=== PATIENT | female | born 1970 | race Caucasian/White ===

== ENCOUNTER 2017-03-29 11:36 | Emergency (ER) | payer MEDICARE, MEDICAID ==
[2017-03-29 11:45] VITALS: BP 131/72
[2017-03-29] MEDS ORDERED: Ketorolac 60 MG/2 ML SDV IM ONE (12:04)
--- NOTE | 2017-03-29 12:41 | EDM.PDOC ---
ED HPI GENERAL MEDICAL PROBLEM - General Chief Complaint: Back Pain or Injury Stated Complaint: BACK PAIN Time Seen by Provider: 03/29/17 11:50 Source of Information: Reports: Patient History Limitations: Reports: No Limitations - History of Present Illness INITIAL COMMENTS - FREE TEXT/NARRATIVE: 46-year-old female with chronic low back pain and fibromyalgia has an increase in pain over the past 24 hours. She arrived his wheelchair, crying and very uncomfortable. No incontinence or radiation of pain down the legs. No new injury such as a fall. Onset: Unknown/Unsure Location: Reports: Back Quality: Reports: Burning, Sharp, Stabbing Severity: Severe Associated Symptoms: Reports: No Other Symptoms - Related Data Allergies Allergy/AdvReac Type Severity Reaction Status Date / Time strawberry [[place]] Allergy Hives Verified 02/13/17 10:32 Home Meds: Home Meds Ibuprofen [Motrin] 800 mg PO ASDIRECTED PRN 09/23/13 [History] Meloxicam [Mobic] 15 mg PO DAILY 09/23/13 [History] Pregabalin [Lyrica] 225 mg PO BID 09/23/13 [History] SUMAtriptan Succinate [Imitrex] 6 mg SQ ASDIRECTED PRN 09/23/13 [History] Albuterol Sulfate [Albuterol Sulfate HFA] 1 inh NEB ASDIRECTED 11/30/14 [History ] Ondansetron [Zofran ODT] 1 tab PO Q8H PRN 11/30/14 [History] DULoxetine HCl [Cymbalta] 40 mg PO DAILY 04/18/16 [History] Past Medical History Gastrointestinal History: Reports: Diverticulosis Musculoskeletal History: Reports: Back Pain, Chronic Other Oncologic History: melanoma skin cancer right arm - Past Surgical History HEENT Surgical History: Reports: Adenoidectomy, Myringotomy w Tube(s), Tonsillectomy GI Surgical History: Reports: Appendectomy, Colon Female Surgical History: Reports: Hysterectomy Social & Family History - Tobacco Use Smoking Status *Q: Current Every Day Smoker Years of Tobacco use: 24 Packs/Tins Daily: 1 Used Tobacco, but Quit: Yes Month Tobacco Last Used: mar 2013 - Alcohol Use Days Per Week of Alcohol Use: 0 - Recreational Drug Use Recreational Drug Use: Yes Recreational Drug Type: Reports: Marijuana/Hashish Recreational Drug Use Frequency: Daily ED ROS GENERAL - Review of Systems Review Of Systems: See Below Constitutional: Denies: Fever, Chills, Malaise Respiratory: Denies: Shortness of Breath, Cough Cardiovascular: Denies: Chest Pain GI/Abdominal: Denies: Abdominal Pain Musculoskeletal: Reports: Back Pain Neurological: Reports: Other (History of traumatic brain injury) ED EXAM,LOWER BACK PAIN/INJURY - Physical Exam Exam: See Below Exam Limited By: No Limitations General Appearance: Alert, Mild Distress Respiratory/Chest: No Respiratory Distress Back Exam: Paraspinal Tenderness (Paraspinal tenderness is present over the lumbar spine, particularly on the right.) Neurological: No Motor/Sensory Deficits Course - Vital Signs Last Recorded V/S: Last Vital Signs Temp 98.8 F 03/29/17 11:56 Pulse 84 03/29/17 11:56 Resp 18 03/29/17 11:56 BP 131/72 03/29/17 11:56 Pulse Ox 94 L 03/29/17 11:56 - Orders/Labs/Meds Meds: Medications Discontinued Medications Generic Name Dose Route Start Last Admin Trade Name Susan PRN Reason Stop Dose Admin Ketorolac Tromethamine 60 mg 03/29/17 12:04 03/29/17 12:12 Toradol IM 03/29/17 12:05 60 mg ONETIME ONE Administration - Re-Assessments/Exams Free Text/Narrative Re-Assessment/Exam: 03/29/17 12:40 Patient was given 60 mg of IM Toradol which gave her really good relief. She'll be discharged on a Medrol Dosepak along with Flexeril and encouraged to continue with ibuprofen. She will recheck with her primary provider next week to see if she is due for additional imaging such as MRI. Departure - Departure Time of Disposition: 13:18 Disposition: Home, Self-Care 01 Condition: Good Clinical Impression: Acute exacerbation of chronic low back pain - Discharge Information Instructions: Back Pain, Adult, [id number] Referrals: PCP,None [Primary Care Provider] - Forms: ED Department Discharge Care Plan Goals: Continue your current medications, and take Medrol Dosepak and Flexeril as prescribed. Try to increase activity and recheck with your regular doctor next week regarding your back.
== END 2017-03-29 13:30 | disposition home or self-care (01) ==
LOC: JP.ED 11:36
DX: G89.29 Other chronic pain (principal); M54.5 Low back pain; F17.210 Nicotine dependence, cigarettes, uncomplicated; Z91.018 Allergy to other foods
CPT/HCPCS: 96372; 99283; J1885

== ENCOUNTER 2017-11-08 21:00 | Emergency (ER) | payer MEDICARE, MEDICAID ==
[2017-11-08] MEDS ORDERED: Sodium Chloride 0.9% 1,000 ML IV ONE ×2 (21:48→23:36)
[2017-11-08 21:53] VITALS: BP 105/58
--- NOTE | 2017-11-09 01:47 | EDM.PDOC ---
ED HPI GENERAL MEDICAL PROBLEM - General Chief Complaint: Neurological Problem Stated Complaint: SEIZURES Time Seen by Provider: 11/08/17 21:10 Source of Information: Reports: EMS, Family History Limitations: Reports: Altered Mental Status - History of Present Illness INITIAL COMMENTS - FREE TEXT/NARRATIVE: This patient arrived by EMS after having 3 seizures while at a local bar/ restaurant. Her said that she had not eaten or drunk much all day so could be a little dehydrated. He said she sort of tensed up with her elbows pulled in and fists at her throat and just sort of shook. She fell and may have bumped her head. When she stopped they sat her up and she did the same thing again.She had several beers just prior to this episode. EMS said she seemed post-ictal. They gave 10 mg versed and transported. SZ began 6-7 yrs ago. Last SZ 6 mos ago. Uses "pot oil" for control. body pain Pain Score (Numeric/FACES): 10 - Related Data Allergies Allergy/AdvReac Type Severity Reaction Status Date / Time strawberry [[place]] Allergy Hives Verified 11/08/17 21:06 Home Meds: Home Meds Ibuprofen [Motrin] 800 mg PO ASDIRECTED PRN 09/23/13 [History] Meloxicam [Mobic] 15 mg PO DAILY 09/23/13 [History] Pregabalin [Lyrica] 300 mg PO BID 09/23/13 [History] SUMAtriptan Succinate [Imitrex] 6 mg SQ ASDIRECTED PRN 09/23/13 [History] Albuterol Sulfate [Albuterol Sulfate HFA] 1 inh NEB ASDIRECTED 11/30/14 [History ] Ondansetron [Zofran ODT] 1 tab PO Q8H PRN 11/30/14 [History] DULoxetine HCl [Cymbalta] 40 mg PO DAILY 04/18/16 [History] Past Medical History HEENT History: Reports: Impaired Vision Respiratory History: Reports: Sleep Apnea, Other (See Below) Other Respiratory History: Cpap Gastrointestinal History: Reports: Diverticulosis, GERD, Irritable Bowel Syndrome Genitourinary History: Reports: Urinary Incontinence 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: Musculoskeletal History: Reports: Arthritis, Back Pain, Chronic, Fracture, Fibromyalgia Neurological History: Reports: Migraines, Seizure Psychiatric History: Reports: Anxiety, Depression, Panic Attack, PTSD Oncologic (Cancer) History: Reports: Malignant Melanoma, Other (See Below) Other Oncologic History: melanoma skin cancer right arm Dermatologic History: Reports: Melanoma - Infectious Disease History Infectious Disease History: Reports: Chicken Pox - Past Surgical History HEENT Surgical History: Reports: Adenoidectomy, Myringotomy w Tube(s), Tonsillectomy GI Surgical History: Reports: Appendectomy, Colon Female Surgical History: Reports: Hysterectomy, Other (See Below) Other Female Surgeries/Procedures: left ovary and bilateral fallopian tube removed. right ovary remains intact Musculoskeletal Surgical History: Reports: Other (See Below) Other Musculoskeletal Surgeries/Procedures:: left 5th finger, plate with wires placed. right great toe, x3 screws placed Social & Family History - Tobacco Use Smoking Status *Q: Current Every Day Smoker Years of Tobacco use: 25 Packs/Tins Daily: 1 - Caffeine Use Caffeine Use: Reports: Coffee - Recreational Drug Use Recreational Drug Use: Yes Drug Use in Last 12 Months: Yes Recreational Drug Type: Reports: Marijuana/Hashish Recreational Drug Use Frequency: Daily ED ROS GENERAL - Review of Systems Review Of Systems: Unable To Obtain - Physical Exam Exam: See Below Exam Limited By: No Limitations General Appearance: WD/WN, Lethargic (appears moderately sedated.) Eye Exam: Bilateral Eye: EOMI, Normal Inspection, PERRL Ears: Normal External Exam Nose: Normal Inspection Throat/Mouth: Normal Inspection, Normal Oropharynx (very dry) Head Exam: Atraumatic (no bruising) Neck: Supple Respiratory/Chest: Lungs Clear Cardiovascular: Regular Rate, Rhythm GI/Abdominal: Soft, Non-Tender Neuro Exam (Abbreviated): Normal Reflexes, No Motor/Sensory Deficits, Slow to Respond, Other (sedated) DTR: 2+: Bicep (R), Bicep (L), Patella (R), Patella (L) Extremities: Normal Inspection Psychiatric: Normal Affect (when more alert) Skin Exam: Warm, Dry Course - Vital Signs Last Recorded V/S: Last Vital Signs Temp 36.6 C 11/08/17 21:11 Pulse 81 11/08/17 21:52 Resp 17 11/08/17 21:52 BP 105/58 L 11/08/17 21:52 Pulse Ox 96 11/08/17 21:52 - Orders/Labs/Meds Labs: Laboratory Tests 11/08/17 11/08/17 11/08/17 Range/Units 22:00 22:00 22:00 WBC 9.7 (4.5-11.0) K/uL RBC 3.78 (3.30-5.50) M/uL Hgb 13.1 (12.0-15.0) g/dL Hct 37.9 (36.0-48.0) % MCV 100 H (80-98) fL MCH 35 H (27-31) pg MCHC 35 (32-36) % Plt Count 344 (150-400) K/uL Neut % (Auto) 57 (36-66) % Lymph % (Auto) 31 (24-44) % [place]ckett % (Auto) 10 H (2-6) % Eos % (Auto) 3 (2-4) % Baso % (Auto) 0 (0-1) % Sodium 144 (140-148) mmol/L Potassium 3.2 L (3.6-5.2) mmol/L Chloride 106 (100-108) mmol/L Carbon Dioxide 25 (21-32) mmol/L Anion Gap 16.2 H (5.0-14.0) mmol/L BUN 8 (7-18) mg/dL Creatinine 0.8 (0.6-1.0) mg/dL Est Cr Clr Drug Dosing 68.76 mL/min Estimated GFR (MDRD) > 60 (>60) Glucose 87 (74-106) mg/dL Calcium 8.5 (8.5-10.1) mg/dL Total Bilirubin 0.2 D (0.2-1.0) mg/dL AST 24 (15-37) U/L ALT 21 (12-78) U/L Alkaline Phosphatase 57 (46-116) U/L Total Protein 6.6 (6.4-8.2) g/dL Albumin 3.6 (3.4-5.0) g/dL Globulin 3.0 (2.3-3.5) g/dL Albumin/Globulin Ratio 1.2 (1.2-2.2) Ethyl Alcohol 80 mg/dL Meds: Medications Discontinued Medications Generic Name Dose Route Start Last Admin Trade Name Freq PRN Reason Stop Dose Admin Sodium Chloride 1,000 mls @ 999 mls/hr 11/08/17 21:48 11/08/17 21:50 Normal Saline IV 11/08/17 22:48 999 mls/hr .BOLUS ONE Administration Sodium Chloride 1,000 mls @ 999 mls/hr 11/08/17 23:36 11/08/17 23:55 Normal Saline IV 11/09/17 00:36 999 mls/hr .BOLUS ONE Administration - Re-Assessments/Exams Free Text/Narrative Re-Assessment/Exam: 11/09/17 06:20 Hydrated with 2 liter iv ns Observed in ER until alert and then discharged. Discussed with her prior. At this point would make no med changes. He said she will followup with Neurology. I have some suspicion of orthostatic syncope rather than true SZ. Departure - Departure Time of Disposition: 01:45 Disposition: Home, Self-Care 01 Condition: Fair Clinical Impression: Seizure - Discharge Information Instructions: Seizure, Adult, [id number] Referrals: PCP,None [Primary Care Provider] - Forms: ED Department Discharge Additional Instructions: Continue all your usual medications. Be sure to drink plenty of water every day and avoid alcohol. See your doctor if you continue to have seizures. You should not drive vehicle until your doctor says it is ok.
== END 2017-11-09 02:02 | disposition home or self-care (01) ==
LOC: JP.ED 21:00
DX: R56.9 Unspecified convulsions (principal); F17.210 Nicotine dependence, cigarettes, uncomplicated; Z91.018 Allergy to other foods; Z79.899 Other long term (current) drug therapy
CPT/HCPCS: 36415; 80053; 85025; 96360; 96361; 99284; G0480; J7030

== ENCOUNTER 2018-09-17 12:46 | Outpatient (CLI) | payer MEDICARE, MEDICAID ==
[2018-09-17] MEDS ORDERED: Bupivacaine 0.5% 30 ML SDV ONE (12:47)
[2018-09-17 13:10] VITALS: BP 113/90; PULSE 74
--- NOTE | 2018-09-17 18:25 | ANES ---
DATE OF SERVICE: 09/17/2018 INDICATION: Ema is a 48-year-old female patient, referred to us by Dr. Rivas for trigger point injections. She has had them several times in the past, is well aware of the risks and benefits, and wishes to proceed with trigger point injections today. Please refer to the doctor's notes for ICD-10 code and diagnosis. TECHNIQUE: The patient was sat at the edge of the bed. She was wanting me to focus on her lower back lumbar region. Her skin was cleaned using alcohol in that area. I was able to easily identify approximately 16 to 17 trigger points. 1 to 2 mL of 0.5% Sensorcaine was injected into those spots. More than 3 muscle groups were injected today. The patient tolerated the procedure without difficulty. Please refer to the nurse's notes for vital signs. After the appropriate amount of time, the patient will be discharged per [facility] protocol. Aman Trejo CRNA /[id number]
== END 2018-09-17 13:13 | disposition home or self-care (01) ==
LOC: JP.PAIN 12:46
PROVIDERS: ATTEND Family Medicine
DX: M79.10 Myalgia, unspecified site (principal)
CPT/HCPCS: 20553; J3490

== ENCOUNTER 2019-05-30 18:18 | Emergency (ER) | payer MEDICARE, MEDICAID ==
[2019-05-30 18:40] VITALS: BP 140/79; PULSE 102
--- NOTE | 2019-05-30 19:20 | EDM.PDOC ---
ED HPI GENERAL MEDICAL PROBLEM - General Chief Complaint: Laceration Stated Complaint: CUT TIP OF MIDDLE FINGER Time Seen by Provider: 05/30/19 19:11 Source of Information: Reports: Patient History Limitations: Reports: No Limitations - History of Present Illness INITIAL COMMENTS - FREE TEXT/NARRATIVE: Patient is here for evaluation of laceration in the terminal segment of the left middle finger sustained after she accidentally cut it with a kitchen knife while preparing potatoes this evening. The knife cut partly into the nail of that finger. She wrapped a wet towel around the finger and came here for evaluation. Last tetanus immunization was 2014. Onset: Today, Sudden Location: Reports: Upper Extremity, Left Quality: Reports: Ache Severity: Mild Improves with: Reports: None Worsens with: Reports: None Left Finger-Middle Pain Score (Numeric/FACES): 8 - Related Data Allergies Allergy/AdvReac Type Severity Reaction Status Date / Time strawberry [[place]] Allergy Hives Verified 05/30/19 18:40 Home Meds: Home Meds Ibuprofen [Motrin] 800 mg PO ASDIRECTED PRN 09/23/13 [History] Meloxicam [Mobic] 15 mg PO DAILY 09/23/13 [History] Pregabalin [Lyrica] 300 mg PO BID 09/23/13 [History] SUMAtriptan Succinate [Imitrex] 6 mg SQ ASDIRECTED PRN 09/23/13 [History] Albuterol Sulfate [Albuterol Sulfate HFA] 1 inh NEB ASDIRECTED 11/30/14 [History ] Ondansetron [Zofran ODT] 1 tab PO Q8H PRN 11/30/14 [History] DULoxetine HCl [Cymbalta] 40 mg PO DAILY 04/18/16 [History] Magnesium Oxide 250 mg PO DAILY 12/10/18 [History] Nortriptyline HCl [Pamelor] 25 mg PO BEDTIME 12/10/18 [History] Oxybutynin 5 mg PO BID 12/10/18 [History] levETIRAcetam [Keppra] 500 mg PO BID 12/10/18 [History] Cyclobenzaprine [Flexeril] 10 mg PO TID PRN 01/21/19 [History] Past Medical History HEENT History: Reports: Impaired Vision Respiratory History: Reports: Sleep Apnea, Other (See Below) Other Respiratory History: Cpap Gastrointestinal History: Reports: Diverticulosis, GERD, Irritable Bowel Syndrome Genitourinary History: Reports: Urinary Incontinence 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: Musculoskeletal History: Reports: Arthritis, Back Pain, Chronic, Fracture, Fibromyalgia Neurological History: Reports: Migraines, Seizure Psychiatric History: Reports: Anxiety, Depression, Panic Attack, PTSD Oncologic (Cancer) History: Reports: Malignant Melanoma, Other (See Below) Other Oncologic History: melanoma skin cancer right arm Dermatologic History: Reports: Melanoma - Infectious Disease History Infectious Disease History: Reports: Chicken Pox - Past Surgical History HEENT Surgical History: Reports: Adenoidectomy, Myringotomy w Tube(s), Tonsillectomy GI Surgical History: Reports: Appendectomy, Colon Female Surgical History: Reports: Hysterectomy, Other (See Below) Other Female Surgeries/Procedures: left ovary and bilateral fallopian tube removed. right ovary remains intact Musculoskeletal Surgical History: Reports: Other (See Below) Other Musculoskeletal Surgeries/Procedures:: left 5th finger, plate with wires placed. right great toe, x3 screws placed Social & Family History - Tobacco Use Smoking Status *Q: Current Every Day Smoker Years of Tobacco use: 36 Packs/Tins Daily: 0.5 - Caffeine Use Caffeine Use: Reports: Coffee - Recreational Drug Use Recreational Drug Use: Yes Recreational Drug Type: Reports: Marijuana/Hashish, Methamphetamine ED ROS GENERAL - Review of Systems Review Of Systems: Comprehensive ROS is negative, except as noted in HPI. ED EXAM, SKIN/RASH Exam: See Below Text/Narrative:: Patient is very nervous and in fact came out of room 7 walking to the nurse's station wanting to know when the doctor would arrive because she had already been here for 30 minutes. Exam Limited By: No Limitations General Appearance: Anxious Extremities: Other (There is a slightly over 1 cm clean bordered oblique laceration through the lateral side of the left middle finger terminal segment. The laceration extends 3 mm into the nailbed. Bleeding is controlled at this time.) Neurological: No Motor/Sensory Deficits Course - Vital Signs Last Recorded V/S: Last Vital Signs Temp 37.3 C 05/30/19 18:37 Pulse 102 H 05/30/19 18:37 Resp 18 05/30/19 18:37 BP 140/79 05/30/19 18:37 Pulse Ox 95 05/30/19 18:37 - Re-Assessments/Exams Free Text/Narrative Re-Assessment/Exam: 05/30/19 22:23 I discussed with her that given its appearance and location, I would recommend closure with Steri-Strips for best effect. She was okay with that. Mastisol skin prep was applied following cleaning of the finger. 2 1/4 inch Steri-Strips were trimmed to appropriate length and placed in an X configuration over the borders of the laceration and the tip of the finger. There was good hemostasis. No additional bandaging was applied. The remainder of Steri-Strips were sent home with the patient in the event these come off. If the edges begin to peel, she can trim them with a nail clipper. I recommend she leave the finger dry for the next 3 days and try to keep the Steri-Strips on for at least 5 days. Return to ER with any worsening of her condition. 05/30/19 22:24 Departure - Departure Time of Disposition: 19:23 Disposition: Home, Self-Care 01 Condition: Good Clinical Impression: Finger laceration Qualifiers: Encounter type: initial encounter Finger: middle finger Damage to nail status: with damage Foreign body presence: without foreign body Laterality: left Qualified Code(s): S61.313A - Laceration without foreign body of left middle finger with damage to nail, initial encounter - Discharge Information *PRESCRIPTION DRUG MONITORING PROGRAM REVIEWED*: Not Applicable *COPY OF PRESCRIPTION DRUG MONITORING REPORT IN PATIENT NOEMY: Not Applicable Instructions: Laceration Care, Adult, [id number] Referrals: Merry Rivas MD [Primary Care Provider] - Forms: ED Department Discharge Additional Instructions: Leave Steri-Strips on for at least 5 days if possible. If the ends begin to curl up you can use a nail clipper to trim them back. If the Steri-Strip comes off completely, you could reapply them as we did today. Keep the finger dry for the next 3 days in particular but routine washing rinsing after that would be fine. Do not apply hydrogen peroxide, iodine, rubbing alcohol to the cut. Sepsis Event Note - Evaluation Sepsis Screening Result: No Definite Risk - Focused Exam Vital Signs: Vital Signs Temp Pulse Resp BP Pulse Ox 05/30/19 18:37 37.3 C 102 H 18 140/79 95 Date Exam was Performed: 05/30/19 Time Exam was Performed: 22:20
== END 2019-05-30 19:32 | disposition home or self-care (01) ==
LOC: JP.ED 18:18
DX: S61.313A Laceration without foreign body of left middle finger with damage to nail, initial encounter (principal); F17.210 Nicotine dependence, cigarettes, uncomplicated; F41.9 Anxiety disorder, unspecified; F32.9 Major depressive disorder, single episode, unspecified; Z79.899 Other long term (current) drug therapy; Z91.018 Allergy to other foods; W26.0XXA Contact with knife, initial encounter
CPT/HCPCS: 99283

== ENCOUNTER 2020-08-17 14:36 | Emergency (ER) | payer MEDICARE, MEDICAID ==
[2020-08-17] MEDS ORDERED: Bacitracin Oint 1 GM U/D Packet TOP ONE (14:47)
[2020-08-17] MEDS ORDERED: Lidocaine 1% with EPINEPHrine 1:100,000 50 ML MDV INFILT ONE (14:48)
[2020-08-17 14:56] VITALS: BP 145/94; PULSE 109
--- NOTE | 2020-08-17 15:34 | EDM.PDOC ---
ED HPI GENERAL MEDICAL PROBLEM - General Chief Complaint: Laceration Stated Complaint: middle finger cut Time Seen by Provider: 08/17/20 15:05 Source of Information: Reports: Patient History Limitations: Reports: No Limitations - History of Present Illness INITIAL COMMENTS - FREE TEXT/NARRATIVE: 50-year-old female with a laceration on her middle finger left hand. She was cutting a plastic bottle with a razor blade when it slipped and she has a flap laceration on the dorsal aspect of the middle finger between the PIP and DIP. No other injury. Onset: Sudden Duration: Hour(s): (Within the last hour) Location: Reports: Upper Extremity, Left Associated Symptoms: Reports: No Other Symptoms Left Finger-Middle Pain Score (Numeric/FACES): 10 - Related Data Allergies Allergy/AdvReac Type Severity Reaction Status Date / Time strawberry [[place]] Allergy Hives Verified 08/17/20 14:46 Home Meds: Home Meds Ibuprofen [Motrin] 800 mg PO ASDIRECTED PRN 09/23/13 [History] Meloxicam [Mobic] 15 mg PO DAILY 09/23/13 [History] Pregabalin [Lyrica] 300 mg PO BID 09/23/13 [History] SUMAtriptan succinate [Imitrex] 6 mg SQ ASDIRECTED PRN 09/23/13 [History] Albuterol Sulfate [Albuterol Sulfate HFA] 1 inh NEB ASDIRECTED 11/30/14 [History] Ondansetron [Zofran ODT] 1 tab PO Q8H PRN 11/30/14 [History] DULoxetine HCl [Cymbalta] 20 mg PO DAILY 04/18/16 [History] Magnesium Oxide 250 mg PO DAILY 12/10/18 [History] Nortriptyline HCl [Pamelor] 25 mg PO BEDTIME 12/10/18 [History] Oxybutynin 5 mg PO BID 12/10/18 [History] levETIRAcetam [Keppra] 500 mg PO BID 12/10/18 [History] Cyclobenzaprine [Flexeril] 10 mg PO TID PRN 01/21/19 [History] Past Medical History HEENT History: Reports: Impaired Vision Respiratory History: Reports: Asthma, Sleep Apnea, Other (See Below) Other Respiratory History: Cpap Gastrointestinal History: Reports: Diverticulosis, GERD, Irritable Bowel Syndrome Genitourinary History: Reports: Urinary Incontinence 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: Musculoskeletal History: Reports: Arthritis, Back Pain, Chronic, Fracture, Fibromyalgia Neurological History: Reports: Migraines, Seizure Psychiatric History: Reports: Anxiety, Depression, Panic Attack, PTSD Oncologic (Cancer) History: Reports: Malignant Melanoma, Other (See Below) Other Oncologic History: melanoma skin cancer right arm Dermatologic History: Reports: Melanoma - Infectious Disease History Infectious Disease History: Reports: Chicken Pox - Past Surgical History HEENT Surgical History: Reports: Adenoidectomy, Myringotomy w Tube(s), Tonsillectomy GI Surgical History: Reports: Appendectomy, Colon Female Surgical History: Reports: Hysterectomy, Other (See Below) Other Female Surgeries/Procedures: left ovary and bilateral fallopian tube removed. right ovary remains intact Musculoskeletal Surgical History: Reports: Other (See Below) Other Musculoskeletal Surgeries/Procedures:: left 5th finger, plate with wires placed. right great toe, x3 screws placed Social & Family History - Tobacco Use Tobacco Use Status *Q: Current Every Day Tobacco User Years of Tobacco use: 38 Packs/Tins Daily: 0.5 - Caffeine Use Caffeine Use: Reports: Coffee - Recreational Drug Use Recreational Drug Use: Yes Recreational Drug Type: Reports: Marijuana/Hashish Recreational Drug Use Frequency: Monthly ED ROS GENERAL - Review of Systems Review Of Systems: See Below Constitutional: Denies: Fever Respiratory: Denies: Shortness of Breath Cardiovascular: Denies: Chest Pain GI/Abdominal: Denies: Nausea, Vomiting Neurological: Denies: Paresthesia Psychiatric: Reports: Anxiety ED EXAM, SKIN/RASH Exam: See Below Exam Limited By: No Limitations General Appearance: Alert, No Apparent Distress, Anxious Head: Atraumatic Respiratory/Chest: No Respiratory Distress Extremities: Other (Exam is otherwise limited to the left hand. Patient has a 3 cm curved flap laceration on the dorsal aspect of the middle finger with brisk bleeding) Neurological: Alert, Oriented Course - Vital Signs Last Recorded V/S: Last Vital Signs Temp 97.2 F 08/17/20 14:53 Pulse 109 H 08/17/20 14:53 Resp 20 08/17/20 14:53 BP 145/94 H 08/17/20 14:53 Pulse Ox 98 08/17/20 14:53 - Orders/Labs/Meds Meds: Medications Discontinued Medications Generic Name Dose Route Start Last Admin Trade Name Susan PRN Reason Stop Dose Admin Bacitracin 1 dose 08/17/20 14:47 08/17/20 15:11 Bacitracin Oint 1 Gm U/D Packet TOP 08/17/20 14:48 1 dose ONETIME ONE Administration Lidocaine/Epinephrine 50 ml 08/17/20 14:48 08/17/20 15:11 Lidocaine 1% With Epinephrine 1:100,000 50 Ml Mdv INFILT 08/17/20 14:49 50 ml ONETIME ONE Administration - Re-Assessments/Exams Free Text/Narrative Re-Assessment/Exam: 08/17/20 15:32 The wound was anesthetized with 1% lidocaine with epinephrine, flushed thoroughly with saline, and five 5-0 Ethilon sutures were used to close the laceration. Topical bacitracin and a Band-Aid was applied, sutures can be removed in 7 days. Keep wound covered and clean while healing, and return sooner if concerns of infection or not healing satisfactorily. Departure - Departure Time of Disposition: 15:47 Disposition: Home, Self-Care 01 Clinical Impression: Finger laceration Qualifiers: Encounter type: initial encounter Finger: middle finger Damage to nail status: without damage Foreign body presence: without foreign body Laterality: left Qualified Code(s): S61.213A - Laceration without foreign body of left middle finger without damage to nail, initial encounter - Discharge Information Instructions: Laceration Care, Adult, [id number] Referrals: Merry Rivas MD [Primary Care Provider] - Forms: ED Department Discharge Care Plan Goals: Keep wound covered and clean while healing, and sutures can be removed in 1 week. Return sooner if concerns of infection or not healing satisfactorily. Sepsis Event Note (ED) - Evaluation Sepsis Screening Result: No Definite Risk - Focused Exam Vital Signs: Vital Signs Temp Pulse Resp BP Pulse Ox 08/17/20 14:53 97.2 F 109 H 20 145/94 H 98
== END 2020-08-17 15:48 | disposition home or self-care (01) ==
LOC: JP.ED 14:36
DX: S61.213A Laceration without foreign body of left middle finger without damage to nail, initial encounter (principal); J45.909 Unspecified asthma, uncomplicated; R56.9 Unspecified convulsions; Z72.0 Tobacco use; Z91.018 Allergy to other foods; Z79.899 Other long term (current) drug therapy; W27.8XXA Contact with other nonpowered hand tool, initial encounter
CPT/HCPCS: 99282-25

== ENCOUNTER 2020-11-08 13:31 | Emergency (ER) | payer MEDICARE, MEDICAID ==
[2020-11-08 13:57] VITALS: BP 132/83; PULSE 86
--- NOTE | 2020-11-08 13:57 | EDM.PDOC ---
<Norma Medina - Last Filed: 11/08/20 14:55> ED HPI GENERAL MEDICAL PROBLEM - General Chief Complaint: Chest Pain Stated Complaint: CHEST PAIN SINCE YESTERDAY Time Seen by Provider: 11/08/20 13:45 Source of Information: Reports: Patient History Limitations: Reports: No Limitations - History of Present Illness INITIAL COMMENTS - FREE TEXT/NARRATIVE: 50 year old female with history of seizure and asthma arrives via triage due to chest pain. She woke yesterday am and noted center chest pain that radiated to left chest and left arm. Associated symptoms include nausea, diaphoresis, and shortness of breath. She reports her symptoms were intermittent yesterday, went away over night and when she developed them again today 45 minutes [employer], she decided to be seen. Her chest pain increases with activity and decreases with rest. She reports a family history of her mother having a heart aneurism and dying suddenly but she does not have a history of heart disease or NM. She reports asthma history and is a daily smoker. She has not been vaccinated for Covid. Right now she rates her chest pain as moderate. Onset: Today Onset Date: 11/08/20 Onset Time: 13:00 Duration: Day(s): Location: Reports: Chest, Radiates to (left chest and left arm) Quality: Reports: Ache Severity: Moderate Improves with: Reports: Rest Worsens with: Reports: Movement Context: Reports: Activity Associated Symptoms: Reports: Chest Pain, Diaphoresis, Shortness of Breath. Denies: Cough, Fever/Chills, Headaches, Nausea/Vomiting, Rash, Weakness - Related Data Allergies Allergy/AdvReac Type Severity Reaction Status Date / Time strawberry [[place]] Allergy Hives Verified 11/08/20 13:49 Home Meds: Home Meds Ibuprofen [Motrin] 800 mg PO ASDIRECTED PRN 09/23/13 [History] Meloxicam [Mobic] 15 mg PO DAILY 09/23/13 [History] Pregabalin [Lyrica] 300 mg PO BID 09/23/13 [History] SUMAtriptan succinate [Imitrex] 6 mg SQ ASDIRECTED PRN 09/23/13 [History] Albuterol Sulfate [Albuterol Sulfate HFA] 1 inh NEB ASDIRECTED 11/30/14 [History] Ondansetron [Zofran ODT] 1 tab PO Q8H PRN 11/30/14 [History] DULoxetine HCl [Cymbalta] 20 mg PO DAILY 04/18/16 [History] Magnesium Oxide 250 mg PO DAILY 12/10/18 [History] Nortriptyline HCl [Pamelor] 25 mg PO BEDTIME 12/10/18 [History] Oxybutynin 5 mg PO BID 12/10/18 [History] levETIRAcetam [Keppra] 500 mg PO BID 12/10/18 [History] Cyclobenzaprine [Flexeril] 10 mg PO TID PRN 01/21/19 [History] Past Medical History HEENT History: Reports: Impaired Vision Respiratory History: Reports: Asthma, Sleep Apnea, Other (See Below) Other Respiratory History: Cpap Gastrointestinal History: Reports: Diverticulosis, GERD, Irritable Bowel Syndrome Genitourinary History: Reports: Urinary Incontinence [employer]ATING History: Reports: Musculoskeletal History: Reports: Arthritis, Back Pain, Chronic, Fracture, Fibromyalgia Neurological History: Reports: Migraines, Seizure Psychiatric History: Reports: Anxiety, Depression, Panic Attack, PTSD Oncologic (Cancer) History: Reports: Malignant Melanoma, Other (See Below) Other Oncologic History: melanoma skin cancer right arm Dermatologic History: Reports: Melanoma - Infectious Disease History Infectious Disease History: Reports: Chicken Pox - Past Surgical History HEENT Surgical History: Reports: Adenoidectomy, Myringotomy w Tube(s), Tonsillectomy GI Surgical History: Reports: Appendectomy, Colon Female Surgical History: Reports: Hysterectomy, Other (See Below) Other Female Surgeries/Procedures: left ovary and bilateral fallopian tube removed. right ovary remains intact Musculoskeletal Surgical History: Reports: Other (See Below) Other Musculoskeletal Surgeries/Procedures:: left 5th finger, plate with wires placed. right great toe, x3 screws placed Social & Family History - Caffeine Use Caffeine Use: Reports: Coffee ED ROS GENERAL - Review of Systems Review Of Systems: See Below Constitutional: Reports: No Symptoms. Denies: Fever, Malaise, Weakness, Decreased Appetite HEENT: Reports: No Symptoms Respiratory: Reports: No Symptoms, Wheezing (chronic "smokers cough" and inspiratory wheezing which she reports as baseline due to her asthma.), Cough. Denies: Shortness of Breath Cardiovascular: Reports: Chest Pain, Dyspnea on Exertion. Denies: Blood Pressure Problem, Edema, Syncope Endocrine: Reports: No Symptoms. Denies: Fatigue GI/Abdominal: Reports: No Symptoms. Denies: Abdominal Pain, Black Stool, Diarrhea, Difficulty Swallowing, Hematemesis, Nausea, Vomiting : Reports: No Symptoms. Denies: Dysuria, Flank Pain, Frequency, Hematuria Musculoskeletal: Reports: Arm Pain (pain radiates to left arm). Denies: Neck Pain, Shoulder Pain Skin: Reports: Diaphoresis (associated diaphoresis with episodes of chest pain) Neurological: Reports: No Symptoms. Denies: Confusion, Dizziness, Headache, Numbness Psychiatric: Reports: No Symptoms Hematologic/Lymphatic: Reports: No Symptoms Immunologic: Reports: No Symptoms ED EXAM, GENERAL - Physical Exam Exam: See Below Free Text/Narrative:: Ema is resting on cart, she is alert and oriented. skin is warm and dry. Respirations are regular and non labored. She has inspiratory wheezing in all l obes, no cough. She reports pain with palpation to chest wall center chest to left lateral chest. No rashes present. Abdomen is non tender, not distended, and soft. No pedal edema, or other abnormalities noted on exam. Exam Limited By: No Limitations General Appearance: Alert, WD/WN, No Apparent Distress Ears: Normal External Exam Nose: Normal Inspection Throat/Mouth: Normal Inspection, No Airway Compromise Head: Atraumatic Neck: Normal Inspection, Non-Tender, Full Range of Motion Respiratory/Chest: No Respiratory Distress, Wheezing, Other (chest tenderness with palpation) Cardiovascular: Normal Peripheral Pulses, Regular Rate, Rhythm, No Edema GI/Abdominal: Soft, Non-Tender. No: Distended, Guarding, Rigid (Female) Exam: Deferred Rectal (Female) Exam: Deferred Back Exam: Normal Inspection, Full Range of Motion Extremities: Normal Inspection, Normal Range of Motion, Non-Tender, No Pedal Edema, Normal Capillary Refill Neurological: Alert, Oriented, Normal Cognition, Normal Gait Psychiatric: Normal Affect, Normal Mood Skin Exam: Warm, Dry, Intact, Normal Color, No Rash Lymphatic: No Adenopathy Course - Vital Signs Text/Narrative:: cbc, cmp, troponin, ekg, chest xray, and covid swab ordered. Patient agrees with plan of care at this time. Departure - Departure Disposition: Home, Self-Care 01 Condition: Good Clinical Impression: Costochondral chest pain, Atypical chest pain Instructions: Chest Wall Pain Referrals: PCP,None [Primary Care Provider] - Forms: ED Department Discharge Additional Instructions: All of your test came back looking very reassuring. You do not have evidence of heart damage on you EKG or blood test. Your chest xray came back normal. Covid test was negative. You likely have costochondritis, which is a chest wall pain that is not related to your heart. Please use ibuprofen and tylenol as needed. Return to the ER if you have new or worsening chest pain, new fever, shortness of breath or any other concerning symptoms. <Brant Okeefe - Last Filed: 11/08/20 18:43> Course - Vital Signs Last Recorded V/S: Last Vital Signs Temp 97.1 F 11/08/20 13:57 Pulse 86 11/08/20 13:57 Resp 23 H 11/08/20 13:57 BP 132/83 11/08/20 13:57 Pulse Ox 99 11/08/20 13:57 - Orders/Labs/Meds Orders: Active Orders 24 hr Category Date Time Status EKG 12 Lead [EK] Stat Ther 11/08/20 13:56 Ordered Labs: Laboratory Tests 11/08/20 11/08/20 11/08/20 Range/Units 13:59 13:59 14:10 WBC 4.9 (4.5-11.0) K/uL RBC 4.39 (3.30-5.50) M/uL Hgb 15.2 H D (12.0-15.0) g/dL Hct 44.7 (36.0-48.0) % MCV 102 H (80-98) fL MCH 35 H (27-31) pg MCHC 34 (32-36) % Plt Count 352 (150-400) K/uL Neut % (Auto) 58.4 (36-66) % Lymph % (Auto) 24.9 (24-44) % Tyler % (Auto) 15.1 H (2-6) % Eos % (Auto) 1.2 L (2-4) % Baso % (Auto) 0.4 (0-1) % Sodium 138 L (140-148) mmol/L Potassium 3.8 (3.6-5.2) mmol/L Chloride 102 (100-108) mmol/L Carbon Dioxide 24 (21-32) mmol/L Anion Gap 15.8 H (5.0-14.0) mmol/L BUN 10 (7-18) mg/dL Creatinine 1.0 (0.6-1.0) mg/dL Est Cr Clr Drug Dosing 53.23 mL/min Estimated GFR (MDRD) 59 L (>60) Glucose 102 (74-106) mg/dL Calcium 8.8 (8.5-10.1) mg/dL Total Bilirubin 0.3 (0.2-1.0) mg/dL AST 27 (15-37) U/L ALT 37 D (12-78) U/L Alkaline Phosphatase 78 (46-116) U/L Troponin I < 0.017 (0.000-0.056) ng/mL Total Protein 7.3 (6.4-8.2) g/dL Albumin 3.7 (3.4-5.0) g/dL Globulin 3.6 H (2.3-3.5) g/dL Albumin/Globulin Ratio 1.0 L (1.2-2.2) SARS CoV-2 RNA Rapid [place] Negative Departure - Departure Time of Disposition: 15:17 Sepsis Event Note (ED) - Focused Exam Vital Signs: Vital Signs Temp Pulse Resp BP Pulse Ox 11/08/20 13:57 97.1 F 86 23 H 132/83 99 11/08/20 13:56 97.1 F 86 23 H 132/83 99 Attestation - Student - Attestation Statement Attestation Statement: I personally performed or re-performed the physical examination and medical decision making. I have verified all student documentation or findings, including history, physical exam and/or medical decision making.
--- NOTE | 2020-11-08 14:54 | CR ---
CHEST: 2 view CLINICAL HISTORY:Chest pain COMPARISON:None FINDINGS: The heart size, pulmonary vascularity and hilar structures are normal. No infiltrate effusion or pneumothorax is seen. IMPRESSION: No acute cardiopulmonary process
== END 2020-11-08 15:17 | disposition home or self-care (01) ==
LOC: JP.ED 13:31
DX: M94.0 Chondrocostal junction syndrome [Tietze] (principal); J45.909 Unspecified asthma, uncomplicated; M19.90 Unspecified osteoarthritis, unspecified site; G43.909 Migraine, unspecified, not intractable, without status migrainosus; R56.9 Unspecified convulsions; F17.200 Nicotine dependence, unspecified, uncomplicated; Z91.018 Allergy to other foods; Z79.899 Other long term (current) drug therapy; Z20.822 Contact with and (suspected) exposure to COVID-19
CPT/HCPCS: 36415; 71046; 80053; 84484; 85025; 93005; 99285; U0002

== ENCOUNTER 2021-05-31 10:19 | Emergency (ER) | payer MEDICARE, MEDICAID ==
[2021-05-31 10:52] VITALS: BP 120/94; PULSE 109
[2021-05-31] MEDS ORDERED: Sodium Chloride 0.9% 10 ML Syringe FLUSH PRN (11:19)
[2021-05-31] MEDS ORDERED: Lactated Ringers 1,000 ML IV ONE (11:19)
[2021-05-31] MEDS ORDERED: Prochlorperazine 10 MG/2 ML SDV IVPUSH ONE (11:19)
[2021-05-31] MEDS ORDERED: diphenhydrAMINE 50 MG/ML SDV IVPUSH ONE (11:19)
[2021-05-31] MEDS ORDERED: Ketorolac 30 MG/ML SDV IVPUSH ONE (11:19)
== END 2021-05-31 14:07 | disposition home or self-care (01) ==
LOC: JP.ED 10:19
DX: G43.009 Migraine without aura, not intractable, without status migrainosus (principal); F41.9 Anxiety disorder, unspecified; F32.A Depression, unspecified; E66.9 Obesity, unspecified; Z68.30 Body mass index [BMI] 30.0-30.9, adult; Z79.899 Other long term (current) drug therapy; Z72.0 Tobacco use; Z91.018 Allergy to other foods
CPT/HCPCS: 96374; 96375; 99283; 99283-25; J0780; J1200; J1885; J7120

== ENCOUNTER 2022-04-13 06:38 | Day surgery (SDC) | payer MEDICARE, MEDICAID ==
[2022-04-13] MEDS ORDERED: fentaNYL 50 MCG/ML SDV ONE (07:20)
[2022-04-13] MEDS ORDERED: Midazolam 1 MG/ML 2 ML SDV ONE (07:20)
[2022-04-13] MEDS ORDERED: Propofol 200 MG/20 ML SDV ONE (07:21)
[2022-04-13] MEDS ORDERED: Sodium Chloride 0.9% 1,000 ML IV SCH ×3 (08:00)
[2022-04-13 09:09] VITALS: BP 151/82; PULSE 88
== END 2022-04-13 09:20 | disposition home or self-care (01) ==
LOC: JP.SDS 06:38
PROVIDERS: ATTEND Student in an Organized Health Care Education/Training Program
DX: Z12.11 Encounter for screening for malignant neoplasm of colon (principal); K21.9 Gastro-esophageal reflux disease without esophagitis; G47.33 Obstructive sleep apnea (adult) (pediatric); J45.909 Unspecified asthma, uncomplicated; F17.200 Nicotine dependence, unspecified, uncomplicated; E66.9 Obesity, unspecified; Z68.41 Body mass index [BMI] 40.0-44.9, adult; Z90.49 Acquired absence of other specified parts of digestive tract; Z79.899 Other long term (current) drug therapy; Z91.018 Allergy to other foods
CPT/HCPCS: J2250; J2704; J3010; J7030